=== PATIENT | female | born 1980 | race Caucasian/White ===

== ENCOUNTER 2019-01-28 15:50 | Inpatient (IN) | payer MEDICAID ==
[~2019-01-28] VITALS: Ht 160 cm; Wt 68.3 kg
[~2019-01-28 15:50] MED LIST: IBUP-1222 PO; OXYC-302 PO; PREN1TAB10 PO; PREN1TAB27 PO
[2019-01-28 16:18] LABS: MICROSCOPIC AUTO
[2019-01-28 16:30] LABS: CULTURE INDICATED? NO
--- NOTE | 2019-01-28 16:55 | NUR ---
[employer]: PT WC'D TO ROOM FROM LOBBY.
--- NOTE | 2019-01-28 17:34 | NUR ---
Pt resting on [place] with lab at bedside.
[2019-01-28 17:47] LABS: BASOPHILS # (AUTO) 0.11 x10^3/uL (0-0.1); BASOPHILS % (AUTO) 1 % (0-1); EOSINOPHILS # (AUTO) 0.01 x10^3/uL (0-0.4); EOSINOPHILS % (AUTO) 0 % (1-7); LYMPHOCYTES # (AUTO) 1.66 x10^3/uL (1-3.4); LYMPHOCYTES % (AUTO) 12 % (22-44); MD NO; MEAN CORPUSCULAR HEMOGLOBIN 29.4 pg (27.0-34.8); MEAN CORPUSCULAR HGB CONC 33.6 g/dL (32.4-35.8); MEAN CORPUSCULAR VOLUME 87.4 fL (80-100); MEAN PLATELET VOLUME 9.2 fL (7.4-10.4); MONOCYTES # (AUTO) 0.61 x10^3/uL (0.2-0.8); MONOCYTES % (AUTO) 4 % (2-9); NEUTROPHILS % (AUTO) 83 % (42-75); PLATELET COUNT 328 x10^3/uL (130-400); RED BLOOD COUNT 4.58 x10^6/uL (3.82-5.3); RED CELL DISTRIBUTION WIDTH 13.1 % (9.6-15.2)
[2019-01-28 17:54] LABS: ALANINE AMINOTRANSFERASE 20 U/L (12-78); ANION GAP 5 mmol/L (5-15); CALCIUM 8.6 mg/dL (8.5-10.1); CHLORIDE 106 mmol/L (98-107)
[2019-01-28 17:59] LABS: ALKALINE PHOSPHATASE 71 U/L (45-117); BILIRUBIN,TOTAL 0.6 mg/dL (0.2-1.0); TOTAL PROTEIN 7.4 g/dL (6.4-8.2)
--- NOTE | 2019-01-28 18:11 | NUR ---
Pt presents to ED with c/o RLQ pain nausea and vomitting for "a few days". Pt rates pain 8/10 intermittent. [address] for [address]. PT connected to NIBP cuff and continous pulse ox. Call light within reach. Pt requesting pain meds, EDMD aware. No other needs requested. NADN. Pt denies cp, blood in emesis or stool, urinary symptoms, back pain, sob, or diarrhea.
[2019-01-28] MEDS ORDERED: HYDROmorphone 1 MG/ML, 1ML VIAL ONE (18:30)
[2019-01-28] MEDS ORDERED: ONDANSETRON 2MG/ML, 2ML IVPush ONE (18:30)
[2019-01-28] MEDS ORDERED: ONDANSETRON 2MG/ML, 2ML ONE (18:30)
[2019-01-28] MEDS ORDERED: HYDROmorphone 2 MG/ML, 1ML IVPush PRN (18:30)
[2019-01-28] MEDS ORDERED: OMNIPAQUE 350 MG/ML, 100ML BOTTLE ONE (18:40)
--- NOTE | 2019-01-28 19:09 | NUR ---
Provided bedside report to FREYA Morris. All questions answered. NADN. No needs expressed. FREYA Morris to assume care of pt.
[2019-01-28] MEDS ORDERED: CEFTRIAXONE PMX 1GM/50ML 50 ML ONE (20:25)
[2019-01-28] MEDS ORDERED: DOXYCYCLINE 100 MG in DEXTROSE 5% 250 ML IV ONE (20:30)
[2019-01-28] MEDS ORDERED: CEFTRIAXONE PMX 1GM/50ML 50 ML IV ONE (20:30)
[2019-01-28 21:06] LABS: CLUE CELLS NONE SEEN (NONE SEEN); WET PREP WBCS MODERATE (FEW)
--- NOTE | 2019-01-28 21:10 | NUR ---
PATIENT RETURNED TO ROOM FROM US. PATIENT UPDATED ON PLAN OF CARE, NO NOTED ACUTE DISTRESS, VITAL SIGNS STABLE. PATIENT DENIES ANY FURTHER NEEDS AT THIS TIME. ANTIBIOTICS STARTED.
[2019-01-28 22:24] VITALS: BP 113/73
[2019-01-28] MEDS: OXYcodone/APAP 5/325MG TABLET PO PRN (22:46)
[2019-01-29] MEDS ORDERED: TEMAZEPAM 15 MG CAPSULE PO PRN
[2019-01-29] MEDS ORDERED: ACETAMINOPHEN 325 MG TABLET PO PRN
[2019-01-29] MEDS ORDERED: POTASSIUM CHLORIDE 20 MEQ TAB.ER.PRT PO ONE
[2019-01-29] MEDS ORDERED: DOCUSATE 100 MG CAPSULE PO PRN
[2019-01-29] MEDS ORDERED: hydrALAzine 20 MG/ML, 1ML IVPush PRN
[2019-01-29] MEDS ORDERED: ONDANSETRON ODT 4 MG PO PRN
[2019-01-29 00:24] VITALS: BP 102/70
[2019-01-29 05:50] LABS: ANION GAP 8 mmol/L (5-15); CALCIUM 8.5 mg/dL (8.5-10.1); CHLORIDE 107 mmol/L (98-107); CREATININE 0.57 mg/dL (0.55-1.02)
[2019-01-29 05:53] LABS: BASOPHILS # (AUTO) 0.04 x10^3/uL (0-0.1); BASOPHILS % (AUTO) 0 % (0-1); EOSINOPHILS # (AUTO) 0.01 x10^3/uL (0-0.4); EOSINOPHILS % (AUTO) 0 % (1-7); LYMPHOCYTES % (AUTO) 12 % (22-44); MD NO; MEAN CORPUSCULAR HEMOGLOBIN 29.3 pg (27.0-34.8); MEAN CORPUSCULAR HGB CONC 33.5 g/dL (32.4-35.8); MEAN CORPUSCULAR VOLUME 87.6 fL (80-100); MEAN PLATELET VOLUME 9.5 fL (7.4-10.4); MONOCYTES # (AUTO) 0.86 x10^3/uL (0.2-0.8); MONOCYTES % (AUTO) 6 % (2-9); NEUTROPHILS % (AUTO) 82 % (42-75); PLATELET COUNT 294 x10^3/uL (130-400); RED BLOOD COUNT 4.41 x10^6/uL (3.82-5.3); RED CELL DISTRIBUTION WIDTH 13.3 % (9.6-15.2)
[2019-01-29] MEDS: CEFTRIAXONE PMX 1GM/50ML 50 ML IV SCH ×2 (07:36→21:01)
[2019-01-29 07:38] VITALS: BP 90/68
[2019-01-29] MEDS: OXYcodone/APAP 5/325MG TABLET PO PRN ×4 (08:18→23:02)
[2019-01-29] MEDS: LIDODERM 5% PATCH TD PRN (08:18)
[2019-01-29] MEDS: DOXYCYCLINE 100 MG in DEXTROSE 5% 250 ML IV SCH ×2 (10:14→23:02)
[2019-01-29 15:00] VITALS: BP 97/59
[2019-01-29] MEDS ORDERED: LACTATED RINGERS 1,000 ML IV SCH (16:00)
[2019-01-29] MEDS: LACTATED RINGERS 1,000 ML IV SCH (18:09)
[2019-01-29] MEDS: ENOXAPARIN 30 MG/0.3 ML SQ SCH (18:09)
[2019-01-29 19:29] VITALS: BP 100/64
[2019-01-30 00:51] VITALS: BP 103/65
[2019-01-30] MEDS: LACTATED RINGERS 1,000 ML IV SCH (07:15)
[2019-01-30 08:56] VITALS: BP 97/56
[2019-01-30] MEDS: CEFTRIAXONE PMX 1GM/50ML 50 ML IV SCH ×2 (08:56→20:58)
[2019-01-30] MEDS: ENOXAPARIN 30 MG/0.3 ML SQ SCH ×2 (08:56→20:58)
[2019-01-30] MEDS: LIDODERM 5% PATCH TD PRN (09:15)
[2019-01-30] MEDS: DOXYCYCLINE 100 MG in DEXTROSE 5% 250 ML IV SCH ×2 (10:41→23:34)
[2019-01-30 12:09] VITALS: BP 94/59
[2019-01-30] MEDS: OXYcodone/APAP 5/325MG TABLET PO PRN (13:40)
[2019-01-30 14:28] LABS: BASOPHILS # (AUTO) 0.03 x10^3/uL (0-0.1); BASOPHILS % (AUTO) 0 % (0-1); EOSINOPHILS # (AUTO) 0.01 x10^3/uL (0-0.4); EOSINOPHILS % (AUTO) 0 % (1-7); LYMPHOCYTES # (AUTO) 1.49 x10^3/uL (1-3.4); LYMPHOCYTES % (AUTO) 15 % (22-44); MD NO; MEAN CORPUSCULAR HEMOGLOBIN 29.3 pg (27.0-34.8); MEAN CORPUSCULAR HGB CONC 33.5 g/dL (32.4-35.8); MEAN CORPUSCULAR VOLUME 87.5 fL (80-100); MEAN PLATELET VOLUME 9.5 fL (7.4-10.4); MONOCYTES # (AUTO) 0.59 x10^3/uL (0.2-0.8); MONOCYTES % (AUTO) 6 % (2-9); NEUTROPHILS # (AUTO) 7.87 x10^3/uL (1.8-6.8); NEUTROPHILS % (AUTO) 79 % (42-75); PLATELET COUNT 284 x10^3/uL (130-400); RED BLOOD COUNT 4.17 x10^6/uL (3.82-5.3); RED CELL DISTRIBUTION WIDTH 13.3 % (9.6-15.2)
[2019-01-30] MEDS ORDERED: LACTATED RINGERS 1,000 ML IV SCH (16:00)
[2019-01-30 18:53] VITALS: BP 109/65
[2019-01-31 00:16] VITALS: BP 117/74
[2019-01-31] MEDS: OXYcodone/APAP 5/325MG TABLET PO PRN ×2 (00:50→12:44)
[2019-01-31 05:38] LABS: BASOPHILS # (AUTO) 0.04 x10^3/uL (0-0.1); BASOPHILS % (AUTO) 0 % (0-1); EOSINOPHILS # (AUTO) 0.17 x10^3/uL (0-0.4); EOSINOPHILS % (AUTO) 2 % (1-7); LYMPHOCYTES # (AUTO) 1.89 x10^3/uL (1-3.4); LYMPHOCYTES % (AUTO) 19 % (22-44); MD NO; MEAN CORPUSCULAR HEMOGLOBIN 29.5 pg (27.0-34.8); MEAN CORPUSCULAR HGB CONC 33.5 g/dL (32.4-35.8); MEAN CORPUSCULAR VOLUME 88.1 fL (80-100); MONOCYTES # (AUTO) 0.59 x10^3/uL (0.2-0.8); MONOCYTES % (AUTO) 6 % (2-9); NEUTROPHILS # (AUTO) 7.34 x10^3/uL (1.8-6.8); NEUTROPHILS % (AUTO) 73 % (42-75); PLATELET COUNT 289 x10^3/uL (130-400); RED BLOOD COUNT 4.03 x10^6/uL (3.82-5.3); RED CELL DISTRIBUTION WIDTH 13.2 % (9.6-15.2)
[2019-01-31] MEDS: LACTATED RINGERS 1,000 ML IV SCH (08:00)
[2019-01-31] MEDS: CEFTRIAXONE PMX 1GM/50ML 50 ML IV SCH (08:53)
[2019-01-31] MEDS: ENOXAPARIN 30 MG/0.3 ML SQ SCH (08:53)
[2019-01-31 09:55] VITALS: BP 102/60
[2019-01-31] MEDS: DOXYCYCLINE 100 MG in DEXTROSE 5% 250 ML IV SCH (11:41)
[2019-01-31] MEDS ORDERED: DOXY100T PO (12:52)
[2019-01-31] MEDS ORDERED: ACID1TAB3 PO (12:52)
== END 2019-01-31 14:53 | disposition home or self-care (01) | DRG 759 ==
LOC: ED 20:41 → EDIP 21:42 → 3N 22:20 → DCLOUNGE 01-31 14:46
PROVIDERS: ADMIT Family Medicine; ATTEND Family Medicine
DX: N72 Inflammatory disease of cervix uteri (principal); N73.8 Other specified female pelvic inflammatory diseases; E87.6 Hypokalemia; N70.93 Salpingitis and oophoritis, unspecified; N83.201 Unspecified ovarian cyst, right side; N83.202 Unspecified ovarian cyst, left side; N83.299 Other ovarian cyst, unspecified side; Z90.49 Acquired absence of other specified parts of digestive tract; Z79.899 Other long term (current) drug therapy
CPT/HCPCS: 36415; 74177; 76830; 80048; 80053; 81001; 83690; 84703; 85025; 86592; 87040; 87210; 87389; 87491; 87591; 87808; 96374; G0378; J0696; J1170; J1650; J2405; J7060; Q9967; J7120

== ENCOUNTER 2020-09-28 12:42 | Emergency (ER) | payer MEDICAID ==
[~2020-09-28] VITALS: Ht 157.5 cm; Wt 74.4 kg
[~2020-09-28 12:42] MED LIST changes: +ACID1TAB3 PO; +DOXY100T PO; -OXYC-302 PO; +OXYC1TAB14 PO
[2020-09-28] MEDS ORDERED: PREN1TAB60 PO (13:30)
--- NOTE | 2020-09-28 13:30 | NUR ---
BP CUFF, PULSE OX IN PLACE. PT UPDATED ON POC. CALL LIGHT WITHIN REACH, WARM BLANKET PROVIDED.
[2020-09-28 13:59] LABS: BASOPHILS % (AUTO) 1 % (0-1); EOSINOPHILS % (AUTO) 1 % (1-7); LYMPHOCYTES % (AUTO) 15 % (22-44); MD NO; MEAN CORPUSCULAR HEMOGLOBIN 27.8 pg (27.0-34.8); MEAN CORPUSCULAR HGB CONC 33.7 g/dL (32.4-35.8); MEAN PLATELET VOLUME 8.1 fL (7.4-10.4); MONOCYTES % (AUTO) 6 % (2-9); NEUTROPHILS % (AUTO) 78 % (42-75); PLATELET COUNT 332 x10^3/uL (130-400); RED BLOOD COUNT 4.53 x10^6/uL (3.82-5.3); RED CELL DISTRIBUTION WIDTH 13.3 % (9.6-15.2)
--- NOTE | 2020-09-28 15:08 | NUR ---
ALL RESULTS BACK, PT FOR RECHECK.
[2020-09-28 16:04] VITALS: BP 121/68
== END 2020-09-28 16:06 | disposition home or self-care (01) ==
LOC: ED 14:05
DX: O20.0 Threatened abortion (principal); R11.2 Nausea with vomiting, unspecified; R10.2 Pelvic and perineal pain; M54.5 Low back pain; Z90.49 Acquired absence of other specified parts of digestive tract; Z3A.08 8 weeks gestation of pregnancy
CPT/HCPCS: 36415; 76801; 84702; 85025; 86901; 99284